=== PATIENT | female | born 1940 | race Caucasian/White ===

== ENCOUNTER 2018-01-05 08:27 | Day surgery (SDC) | payer OTHER ==
[2018-01-05] VITALS (11 sets, daily range): BP systolic 131–229; BP diastolic 66–101; PULSE 72–112; RESP 18–20; TEMP 98.2–99; O2SAT 93–96
[~2018-01-05] VITALS: Ht 167.6 cm; Wt 61.8 kg
[~2018-01-05 08:27] MED LIST: CLOP75 PO
[2018-01-05] MEDS ORDERED: IOHEXOL 350 MG/ML 50 ML BTL (for Cath Lab) OTHER ONE (08:28)
--- NOTE | 2018-01-05 09:23 | PD.VS.PN ---
Pre-operative Note Pre-operative diagnosis: PAD, L LE claudication Planned procedure: Aortogram w/ L LE angiogram Endovascular intervention Interval History: Pt has been feeling well ; no changes that would preclude OR. Labs: pending Blood: none needed Imaging: CTA reviewed Orders: NPO Post-operative destination: DOCU Operative site marked: Yes Consent: Informed consent has been obtained from Navdeep Sprague. I have explained the procedure in detail and discussed the risks, benefits, and potential complications. All questions have been answered. Monty Montero MD Jan 05, 2018 09:22
[2018-01-05] MEDS ORDERED: SODIUM BICARBONATE 100 MEQ in D5W 1000 ML IV SCH (09:30)
[2018-01-05] MEDS ORDERED: hydrALAZINE HCL 20 MG/ML VIAL IV ONE (10:00)
[2018-01-05] MEDS ORDERED: hydrALAZINE HCL 20 MG/ML VIAL IV PUSH ONE (10:45)
[2018-01-05] MEDS ORDERED: MIDAZOLAM HCL 2 MG/2 ML VIAL ONE (11:30)
[2018-01-05] MEDS ORDERED: NITROGLYCERIN INJ 5 ML ONE (11:30)
[2018-01-05] MEDS ORDERED: HEPARIN SODIUM - IV 10,000 UNITS/10 ML VIAL ONE (11:30)
[2018-01-05] MEDS ORDERED: LIDOCAINE HCL 1% PF 30 ML VIAL ONE (11:30)
[2018-01-05] MEDS ORDERED: HEPARIN-NS/PF FLUSH BAG 2,000 ML IV FLUSH ONE (11:30)
[2018-01-05] MEDS ORDERED: PLAV75TA29 PO (11:47)
--- NOTE | 2018-01-05 12:39 | CATHPROC ---
[facility] HIS Report Study Information Study Number Admission Scheduled Start Study Start [id number] Jan 05 2018 8:27AM 01/05/2018 Jan 05 2018 11:26AM [place] Service Cath Endovascular Study Admit Source Facility Department Other [facility] Physician and Clinical Staff Initial MD Montero, Monty Supervisor Instrument Mechanics Ritu Kendrick,RN Recorder Ovidio Knight,RT(R) Scrub Maximilian Miranda,RT(R) Procedures Performed Procedure Location (Site) Vessel Name Abdominal Angiogram Abd Aorta (A3) Aorta TELESCOPE REPAIRER Peroneal (left) Popliteal TELESCOPE REPAIRER SFA (left) Femoral Art Wire insertion Fem Art (right) Femoral Art Equipment Time Pulpwood Cutter Description Size Mfg Part Number Used/Scraped [id number] 11:32 ANGIO-DYNAMICS OMNI FLUSH 65CM CATHETER FR 4 Used *[id number] INTRODUCER SET, 11:31 [employer]OOK INC. FR 5 [id number] *[id number] Used MICROPUNCTURE STIFF BALLOON, ADVANCE 18 LP .018 4 [id number] 12:28 COOK/MANUEL 4X4 Used X4 *[id number] CXI-4.0-35-135- 11:51 COOK/MANUEL CATHETER, FR4 CXI SUPPORT FR 4 Used P-NS-0 *[id number] SHEATH, FR6 BLANCHE 1 FLEXOR [id number] 11:51 COOK/MANUEL FR 6 Used 55CM *[id number] WIRE, GUIDE APPROACH PULP MILL OPERATOR [id number] 11:58 COOK/MANUEL 300CM Used MICROWIRE *[id number] WIRE, STORQ STANDARD MOD J [id number] 11:53 CORDIS/ MANUEL 300CM Used 300CM *[id number] 12:33 DAIG/ST. MED MEDICAL ANGIOSEAL, FR6 VIP FR 6 Used *[id number] 12:27 DAIG/ST. MED MEDICAL ANGIOSEAL, FR6 VIP FR 6 Used *[id number] BALLOON, ADMIRAL IN.PACT 5 X [id number] 12:00 [email or web address] TECHNOLOGIES 130CM Used 80 130CM *[id number] 11:31 Loylap INDUSTRIES PACK, CCL CUSTOM * Used *[id number] 4739-33 11:51 MERIT MEDICAL WIRE, LIND 260CM .035 260CM Used *[id number] TUBING, PRESSURE INJECTION [id number] 11:31 NAMIC PACER 72" Used 72" *[id number] 11:31 NYCOMED OMNIPAQUE, 300 MG, 150ML 150ML [id number] Used 11:31 NYCOMED OMNIPAQUE, 300 MG, 50ML 50ML [id number] Used [id number] 11:31 PAEZ MEDICAL BLANKET,WARM AIR CCL * Used *[id number] 11:32 TERUMO MEDICAL SHEATH, FR4 TERUMO (10CM) FR 4 Used *[id number] 11:55 TERUMO MEDICAL SHEATH, FR6 TERUMO (10CM) FR 6 Used *[id number] CATHETER, FR4 GUIDE ANGLED 11:47 TERUMO MEDICAL/MANUEL FR 4 [id number] *[id number] Used 120CM WIRE, ANGLED GLIDE .035 [id number] 11:31 TERUMO MEDICAL/MANUEL 260CM Used 260CM *[id number] Equipment Model, Serial, Lot Number and Expiration Data Description Model Number Serial Number Lot Number Expiration Date ANGIOSEAL, FR6 VIP [id number] 07-14-2018 ANGIOSEAL, FR6 VIP [id number] 07-14-2018 BALLOON, ADMIRAL IN.PACT 5 X [id number] 08-20-2020 80 130CM CATHETER, FR4 CXI SUPPORT [id number] 12-04-2020 SHEATH, FR6 BLANCHE 1 FLEXOR [id number] 10-13-2020 55CM WIRE, GUIDE APPROACH PULP MILL OPERATOR [id number] 03-01-2022 MICROWIRE Medication Medication Total Dose (Bolus/Oral) Medication Total Dosage/Unit 1% XYLOCAINE 10 mL FENTANYL 100 mcg HEPARIN 5000 units VERSED 2 mg Medications (Bolus/Oral) Medication Time Given Dosage/Unit Administered By Reason VERSED 01/05/2018 11:40:29 AM 1 mg Ritu Kendrick 1 mg VERSED given in lab by Ritu Kendrick, RN via Peripheral IV. Ordered by Monty Montero. 1% XYLOCAINE 01/05/2018 11:41:12 AM 10 mL Monty Montero 10 mL 1% XYLOCAINE given in lab by Monty Mnotero in Right Groin via Subcutaneous. Ordered by Monty Montero. FENTANYL 01/05/2018 11:41:57 AM 50 mcg Ritu Kendrick 50 mcg FENTANYL given in lab by Ritu Kendrick, RN via Peripheral IV. Ordered by Monty Montero. HEPARIN 01/05/2018 11:51:04 AM 5000 units Ritu Kendrick 5000 units HEPARIN given in lab by Ritu Kendrick, RN via Peripheral IV. Ordered by Monty Montero. VERSED 01/05/2018 12:04:06 PM 1 mg Ritu Kendrick 1 mg VERSED given in lab by Ritu Kendrick, NYDIA via Peripheral IV. Ordered by Monty Montero. FENTANYL 01/05/2018 12:05:45 PM 50 mcg Ritu Kendrick 50 mcg FENTANYL given in lab by Ritu Kendrick, NYDIA via Peripheral IV. Ordered by Monty Montero. Medication (Drip) Medication Time Given Dosage/Unit Concentration/Unit Diluent (ml) Solution SODIUM BICARBONATE 01/05/2018 11:30:04 AM 15 mL/hr 150 1000 NaCl .9 DRIP Patient arrived on 15 mL/hr SODIUM BICARBONATE DRIP given by Monty Montero in Left Antecubital via P eripheral IV. Pump/Drip Flow = 100 ml/hr using NaCl .9 with a concentration of 150 in 1000 ml. Ordered by Monty Montero. Initial Case Assessment Cardiovascular HR Rhythm NIBP 88 sr 193/101 Edema Present Skin color Skin None Normal Warm Dry Circulatory - Right Pulses Femoral 3 Scale (0,1,2,3,4,d) Circulatory - Left Pulses Femoral 2 Scale (0,1,2,3,4,d) Neurological State Oriented to time-place- Alert Moves all extremities person Respiration - General Respiration Rate SpO2 (%) O2 (lpm) (B/min) 18 98 0 Final Case Assessment Cardiovascular HR Rhythm NIBP 89 sr 153/90 Edema Present Skin color Skin None Normal Warm Dry Circulatory - Right Pulses Femoral 3 Scale (0,1,2,3,4,d) Circulatory - Left Pulses Femoral 2 Scale (0,1,2,3,4,d) Neurological State Oriented to time-place- Alert Moves all extremities person Respiration - General Respiration Rate SpO2 (%) O2 (lpm) (B/min) 18 96 0 Chronological Log Time Study Chronological Log 11:23:08 Patient arrived via Bed. No labs drawn this visit per Dr. Montero 11:26:14 Patient Name, D.O.B, / Armband Verified By R.N. 11:26:16 Consent signed by the physician and the patient and verified by the [facility] staff. 11:26:16 Pre-op and post- op instructions given; patient acknowledges understanding of instructions. 11:26:43 MD arrived. Vitals capture started with the following parameters, Patient=Adult, Interval=5 min, Initial Pr gbembn=050 mmHg, 11:27:38 Deflation Rate=5 mmHg, Cuff placed on Right Ankle 11:28:54 HR=90 bpm, FAXX=684/101 mmhg, SpO2=97.0 %, Resp=21 B/min, Figueredo=2 11:29:32 Reference ECG taken 11:29:45 A # 20 IV was noted in the Antecubital (left). Grade = 0 Patient arrived on 15 mL/hr SODIUM BICARBONATE DRIP given by Monty Montero in Left Antecubital via Peripheral IV. 11:30:04 Pump/Drip Flow = 100 ml/hr using NaCl .9 with a concentration of 150 in 1000 ml. Ordered by Monty Legre. 11:30:29 History and physical on the chart or being dictated. Assessment: Initial Case, HR=88 BPM, Rhythm=sr, PWDJ=764/101 mmhg, Edema=None, Color=Normal, Sk in = Warm, Dry Right Pulses: Femoral=3 11:30:31 Left Pulses: Femoral=2 Neurological: State=Alert, Ox3, RAE Respiration: Resp=18 B/min, SpO2=98 %, O2=0 lpm 11:31:01 Bilateral groins prepped with 2% chlorhexidine, and draped after a 3 minute waiting time. 11:33:22 MM=292 bpm, XSGP=353/103 mmhg, SpO2=97.0 %, Resp=21 B/min, Figueredo=2 11:38:23 HR=89 bpm, WDWR=273/96 mmhg, SpO2=96.0 %, Resp=13 B/min, Figueredo=2 Time Out. Correct patient, correct procedure, correct physician, power injector loaded with con trast with surgical team 11:40:08 present. Time Out Concurred by MD and individual staff in procedure. Loaded by Kayleigh Kendrick Rn . verified by Maximilian Miranda. 11:40:29 1 mg VERSED given in lab by Ritu Kendrick, RN via Peripheral IV. Ordered by Luc Montero 11:41:00 Case Start 11:41:02 Verbal Stimulation=2 Physical Stimulation=2 Airway=2 Respiration=2 TOTAL=8. (0=absent, 1=li mited, 2=present) 11:41:12 10 mL 1% XYLOCAINE given in lab by Monty Montero in Right Groin via Subcutaneous. Ordered by Monty Montero. 11:41:57 50 mcg FENTANYL given in lab by Ritu Kendrick, RN via Peripheral IV. Ordered by Moi Montero. 11:42:11 Access site was Right Femoral Artery. 11:42:20 A SHEATH, FR4 TERUMO (10CM) FR 4 was advanced into the Fem Art (right) using the Percutaneo us technique. 11:43:22 HR=94 bpm, FCWH=188/98 mmhg, SpO2=94.0 %, Resp=17 B/min, Figueredo=2 A OMNI FLUSH 65CM CATHETER FR 4 was advanced over a wire. OMNIPAQUE, 300 MG, 150ML 150ML was us ed for 11:43:40 injections. 11:44:30 Through a OMNI FLUSH 65CM CATHETER FR 4, The Abdominal Aorta was injected with 10 cc's of c ontrast. 11:45:43 A WIRE, ANGLED GLIDE .035 260CM 260CM was inserted via Fem Art (right). After removing the current catheter a CATHETER, FR4 GUIDE ANGLED 120CM FR 4 was advanced over a WIRE, 11:47:27 ANGLED GLIDE .035 260CM 260CM. 11:48:23 HR=89 bpm, VTPD=136/85 mmhg, SpO2=95.0 %, Resp=17 B/min, Figueredo=2 11:49:40 Injections down left leg through 4fr angled catheter. 11:51:04 5000 units HEPARIN given in lab by Ritu Kendrick, RN via Peripheral IV. Ordered by Monty Montero. 11:51:17 A WIRE, LIND 260CM .035 260CM was inserted via Fem Art (right). 11:51:23 Catheter was removed 11:53:20 HR=94 bpm, JBIL=554/90 mmhg, SpO2=93.0 %, Resp=18 B/min, Figueredo=2 A SHEATH, FR6 TERUMO (10CM) FR 6 was exchanged in the Fem Art (right). This was necessary in or beltran to 11:55:19 accomodate a larger catheter. A SHEATH, FR6 BLANCHE 1 FLEXOR 55CM FR 6 was exchanged in the Fem Art (right). This was necessary in order to 11:55:27 accomodate a larger catheter. 11:58:21 HR=89 bpm, CKUD=445/87 mmhg, SpO2=95.0 %, Resp=20 B/min, Figueredo=2 A CATHETER, FR4 CXI SUPPORT FR 4 was advanced over a wire. OMNIPAQUE, 300 MG, 50ML 50ML was use d for 11:58:43 injections. 11:58:49 The previous wire was exchanged for a WIRE, GUIDE APPROACH PULP MILL OPERATOR MICROWIRE 300CM. 12:00:26 The previous wire was exchanged for a WIRE, STORQ STANDARD MOD J 300CM 300CM. 12:03:20 HR=93 bpm, ZDKT=535/98 mmhg, SpO2=94.0 %, Resp=20 B/min, Figueredo=2 A BALLOON, ADMIRAL IN.PACT 5 X 80 130CM 130CM was inserted over WIRE, STORQ STANDARD MOD J 300C M 12:03:20 300CM via the SFA (left). 12:03:37 In the SFA (left) a BALLOON, ADMIRAL IN.PACT 5 X 80 130CM 130CM was inflated to 8 atms for 180 seconds. 12:04:06 1 mg VERSED given in lab by Ritu Kendrick, NYDIA via Peripheral IV. Ordered by Luc Montero 12:05:45 50 mcg FENTANYL given in lab by Ritu Kendrick, NYDIA via Peripheral IV. Ordered by Moi Montero. 12:08:21 HR=84 bpm, EBPL=221/89 mmhg, SpO2=94.0 %, Resp=12 B/min, Figueredo=2 12:10:38 Balloon Removed. 12:13:24 HR=83 bpm, IQPC=127/76 mmhg, SpO2=94.0 %, Resp=17 B/min, Figureedo=2 12:13:44 The previous wire was exchanged for a WIRE, GUIDE APPROACH PULP MILL OPERATOR MICROWIRE 300CM. 12:18:23 HR=83 bpm, UHKE=549/71 mmhg, SpO2=94.0 %, Resp=15 B/min, Figueredo=2 12:19:16 Catheter was removed w/o difficulty A balloons was inserted over WIRE, GUIDE APPROACH PULP MILL OPERATOR MICROWIRE 300CM via the Peroneal (left). COOK 3mm * 12:19:18 4cm .018 Balloon. 12:20:11 In the Peroneal (left) a balloons was inflated to 12 atms for 120 seconds. 12:23:19 In the Peroneal (left) a balloons was inflated to 12 atms for 120 seconds. 12:23:20 HR=79 bpm, CUSM=869/81 mmhg, SpO2=92.0 %, Resp=17 B/min, Figueredo=2 12:26:26 Balloon Removed. A BALLOON, ADVANCE 18 LP .018 4 X 4 4 X 4 was inserted over WIRE, GUIDE APPROACH PULP MILL OPERATOR MICROWIRE 300CM via 12:27:03 the Peroneal (left). 12:27:49 In the Peroneal (left) a BALLOON, ADVANCE 18 LP .018 4 X 4 4 X 4 was inflated to 8 atms fo r 20 seconds. 12:29:00 HR=80 bpm, ZNWW=305/79 mmhg, SpO2=95.0 %, Resp=17 B/min, Figueredo=2 12:31:11 Balloon Removed. 12:32:21 The previous wire was exchanged for a WIRE, STORQ STANDARD MOD J 300CM 300CM. 12:33:23 HR=90 bpm, VKSR=344/90 mmhg, SpO2=95.0 %, Resp=23 B/min, Figueredo=2 12:34:10 ANGIOSEAL, FR6 VIP FR 6 placement in the Fem Art (right) Assessment: Final Case, HR=89 BPM, Rhythm=sr, VZGL=529/90 mmhg, Edema=None, Color=Normal, Skin = Warm, Dry Right Pulses: Femoral=3 12:35:01 Left Pulses: Femoral=2 Neurological: State=Alert, Ox3, RAE Respiration: Resp=18 B/min, SpO2=96 %, O2=0 lpm 12:35:34 Catheter(s) removed without difficulty 12:35:37 Case End 12:35:38 No case complications noted. 12:35:40 Cine recording checked. 12:37:01 Patient moved to stretcher 12:38:22 HR=85 bpm, SQCK=770/80 mmhg, SpO2=95.0 %, Resp=19 B/min, Figueredo=2 End Study - Contrast Media Used In Study Contrast Total Opened (mL) Total Used (mL) Total Wasted (mL) Omnipaque 45 45 0 End Study - Radiation Exposure Fluoro Time (minutes) 13.8 End Study - Patient Disposition Complications Transferred To No Telemetry Bed
[2018-01-05] MEDS ORDERED: BISACODYL 10 MG SUPP RECTAL PRN (12:45)
[2018-01-05] MEDS ORDERED: ENOXAPARIN SODIUM 40 MG/0.4 ML SYRINGE SQ SCH (12:45)
[2018-01-05] MEDS ORDERED: SENNOSIDES 8.6 MG TAB PO PRN (12:45)
[2018-01-05] MEDS ORDERED: HEPARIN-D5W 25,000 U/250 ML 250 ML IV PRN (12:45)
[2018-01-05] MEDS ORDERED: LACTULOSE SYRUP 20 GM/30 ML CUP PO PRN (12:45)
[2018-01-05] MEDS ORDERED: MAGNESIUM HYDROXIDE SUSP 30 ML CUP PO PRN (12:45)
--- NOTE | 2018-01-05 12:45 | HHI.PR ---
cc: Monty Montero MD Immediate Post Op Note Procedure Date: Jan 05, 2018 Pre Op Diagnosis: L LE claudication, PAD Post Op Diagnosis: Same Surgeon: Monty Montero Toxicology Teacher(s): none Procedure: 1. Aortogram w/ L LE angiogram 2. L SFA GUEST HOUSE MANAGER (5mm) with DCB 3. L peroneal GUEST HOUSE MANAGER (3mm) 4. R INTERIOR DESIGN ASSISTANT Angioseal Findings: SFA stent occlusion Additional Information: GUEST HOUSE MANAGER of stent with embolism to peroneal, then GUEST HOUSE MANAGER of peroneal Complications: embolism as above Specimen(s) removed: none Estimated blood loss: 10mL Anesthesia: MAC Drains: None Fluids: 500mL IVF Patient to: Other (DOCU) Patient Condition: Good Implant/Devices: SEE IMPLANT LOG (if applicable) Date/Time of Procedure: SEE SURGICAL CARE RECORD Monty Montero MD Jan 05, 2018 12:45
[2018-01-05 14:16] LABS: INTERNATIONAL NORMALIZED RATIO 1.1 RATIO; PROTHROMBIN TIME - PATIENT 10.7 SEC (9.8-11.6)
[2018-01-05] MEDS ORDERED: HEPARIN SODIUM - IV 10,000 UNITS/10 ML VIAL IV PUSH PRN (18:45)
[2018-01-05] MEDS ORDERED: HEPARIN - 10,000 UNITS/ML IV ADDITIVE IV PUSH PRN (18:45)
[2018-01-05] MEDS ORDERED: hydrALAZINE HCL 20 MG/ML VIAL IV PRN (20:30)
[2018-01-05] MEDS ORDERED: DOCUSATE SODIUM 50 MG/SENNA 8.6 MG TAB PO SCH (21:00)
[2018-01-05] MEDS ORDERED: FAMOTIDINE 20 MG TAB PO SCH (21:00)
[2018-01-05] MEDS ORDERED: ONDANSETRON HCL 4 MG/2 ML VIAL IV PUSH PRN (21:45)
[2018-01-06] VITALS (11 sets, daily range): BP systolic 154–182; BP diastolic 68–80; PULSE 76–109; RESP 16; TEMP 98.7; O2SAT 96
--- NOTE | 2018-01-06 09:01 | PD.VS.PN ---
Subjective POD #: 1 Procedure(s): Aortogram w/ L LE angiogram L SFA PATTERN CHAIN MAKER SUPERVISOR (5mm) with DCB L peroneal PATTERN CHAIN MAKER SUPERVISOR (3mm) R ENVIRONMENTAL STUDIES FACULTY MEMBER Angioseal Subjective/Hospital Course 77/F with a PMH of LEFT lower extremity claudication Pt S/P Left lower extremity revascularization Pt w/o complaints LE warm w/ motor intact Objective Vitals/I&O Date Time Temp Pulse Resp B/P (MAP) Pulse Ox O2 Delivery O2 Flow Rate FiO2 01/06/18 08:00 98.7 100 16 154/68 (96) 96 01/06/18 08:00 100 01/06/18 07:00 100 01/06/18 06:13 109 01/06/18 05:00 182/80 (114) 01/06/18 05:00 101 01/06/18 04:00 98 01/06/18 03:10 106 01/06/18 03:09 98.7 100 16 154/68 (96) 96 01/06/18 02:00 87 01/06/18 01:00 86 01/06/18 00:00 76 01/05/18 23:00 100 01/05/18 23:00 98.2 102 20 131/66 (87) 96 01/05/18 22:00 96 01/05/18 21:00 110 212/97 (135) 01/05/18 21:00 106 01/05/18 20:00 112 01/05/18 19:00 87 01/05/18 19:00 99.0 87 20 208/81 (123) 96 01/05/18 18:00 76 01/05/18 17:00 78 01/05/18 16:00 74 01/05/18 15:17 98.2 75 18 229/101 (143) 93 01/05/18 15:00 72 01/05/18 12:52 95 Room Air 01/05/18 09:00 98.5 75 18 229/101 (143) 93 01/06/18 01/06/18 01/06/18 07:00 15:00 23:00 Intake Total 380 ml Output Total 600 ml Balance -220 ml Exam: GENERAL: A&OX3,NAD,GCS15 SKIN: LE warm with motor intact MUSCULOSKELETAL: No cyanosis, or edema. Laboratory Laboratory Tests Test 01/05/18 13:40 01/05/18 20:56 01/06/18 05:27 Prothrombin Time 10.7 Prothromb Time International Ratio 1.1 Activated Partial Thromboplast Time 41.1 39.7 60.9 Assessment and Plan Assessment: (1) Claudication in peripheral vascular disease (2) PAD (peripheral artery disease) Plan 77/F s/p L LE revascularization Pt w/o complaints B LE warm w/ motor intact Plan Pt clear for D/C w/ continued anticoagulation therapy (Lovenox) Arranged out pt f/u in 1W with a surveillance NATE Olimpia Noriega NP [facility] [phone] Discharge Planning Today Olimpia Noriega [facility] Jan 06, 2018 09:01
[2018-01-06] MEDS ORDERED: ENOX60P SQ (09:10)
--- NOTE | 2018-01-06 09:22 | PD.VS.DC ---
Discharge Summary Admission Date: 01/05/18 Discharge Date: Jan 06, 2018 Admission Diagnosis: (1) PAD (peripheral artery disease) (2) Claudication in peripheral vascular disease Discharge Diagnosis: (1) Claudication in peripheral vascular disease ICD Codes: I73.9 - Peripheral vascular disease, unspecified (2) PAD (peripheral artery disease) ICD Codes: I73.9 - Peripheral vascular disease, unspecified Brief History from admission 77/F with a hx of L LE PAD with claudication Procedure(s): Aortogram w/ L LE angiogram L SFA PRINTED CIRCUIT BOARDS BEVELER (5mm) with DCB L peroneal PRINTED CIRCUIT BOARDS BEVELER (3mm) R POLYMER ENGINEER Angioseal Significant Findings GENERAL: A&OX3,NAD,GCS15 SKIN: LE warm with motor intact MUSCULOSKELETAL: No cyanosis, or edema. Laboratory Tests Test 01/05/18 13:40 01/05/18 20:56 01/06/18 05:27 Activated Partial Thromboplast Time 41.1 SEC (24.3-30.1) 39.7 SEC (24.3-30.1) 60.9 SEC (24.3-30.1) Hospital Course: 77/F with a hx of L LE PAD with claudication Pt s/p Aortogram w/ L LE angiogram/L SFA PRINTED CIRCUIT BOARDS BEVELER (5mm) with DCB/L peroneal PRINTED CIRCUIT BOARDS BEVELER (3mm) /R POLYMER ENGINEER Angioseal Post procedure pt c/o left leg feeling cold/pt was motor intact and was admitted for observation and anticoagulation therapy POD 1 Pt S/P Left lower extremity revascularization Pt w/o complaints LE warm w/ motor intact Pt clear for d/c with continued anticoagulation therapy (Lovenox) Arranged out pt f/u in 1W with a surveillance NATE Allergies Coded Allergies Type Severity Reaction Last Updated Verified No Known Allergies 06/14/12 Yes 01/04/18 01/04/18 01/05/18 01/05/18 01/06/18 01/06/18 06:00 18:00 06:00 18:00 06:00 18:00 Intake Total 425 ml 380 ml Output Total 400 ml 600 ml Balance 25 ml -220 ml Intake Oral 425 ml 240 ml IV Total 140 ml Output Urine Total 400 ml 600 ml # Bowel Movements 0 Laboratory Tests Test 01/05/18 13:40 01/05/18 20:56 01/06/18 05:27 Prothrombin Time 10.7 SEC Prothromb Time International Ratio 1.1 RATIO Activated Partial Thromboplast Time 41.1 SEC 39.7 SEC 60.9 SEC Orders Procedure Category Date Status Time Sodium Bicarbonate MED 01/05/18 In Process 8.4% Inj (Sodium Bica 09:30 Hydralazine Inj MED 01/05/18 Complete (Apresoline Inj) 10:00 Endovascular Cath CATH 01/05/18 Logged Heparin-Ns/Pf Flush MED 01/05/18 Complete Bag (Heparin-Ns/Pf F 11:30 Midazolam Inj (Versed MED 01/05/18 Complete Inj) 11:30 Fentanyl Inj MED 01/05/18 Complete (Fentanyl Inj) 11:30 Lidocaine Pf 1% Inj MED 01/05/18 Complete (Xylocaine-Mpf 1% In 11:30 Heparin Inj (Heparin MED 01/05/18 Complete Inj) 11:30 Nitroglycerin Inj MED 01/05/18 Complete (Nitroglycerin Inj) 11:30 Place In Observation ADMITTING 01/05/18 Transmitted Code Status CODE 01/05/18 Transmitted 12:45 Vital Signs (Adult) MARIAN 01/05/18 Complete 12:45 Operator Assistant I Cementing / MARIAN 01/05/18 In Process Telemetry 12:45 Activity Oob Ad Kinza MARIAN 01/05/18 In Process 18:00 Activity Bed Rest MARIAN 01/05/18 In Process 12:45 Precautions MARIAN 01/05/18 In Process 12:45 Diet Heart Healthy DIET 01/05/18 Transmitted Lunch Clopidogrel (Plavix) MED 01/07/18 In Process 09:00 Famotidine (Pepcid) MED 01/05/18 In Process 21:00 Docusate Sodium-Senna MED 01/05/18 In Process (Montse-Colace) 21:00 Magnesium Hydroxide MED 01/05/18 In Process Liq (Milk Of Magnesi 12:45 Sennosides (Senokot) MED 01/05/18 In Process 12:45 Bisacodyl Supp MED 01/05/18 In Process (Dulcolax Supp) 12:45 Lactulose Liq MED 01/05/18 In Process (Lactulose Liq) 12:45 Heparin Inj (Heparin MED 01/05/18 In Process Inj) 18:45 Heparin Inj (Heparin MED 01/05/18 In Process Inj) 18:45 Heparin-D5w 25,000 MED 01/05/18 In Process U/250 Ml (Heparin-D5w 12:45 Act Partial Throm LAB 01/05/18 Complete Time (Ptt) 12:45 Prothrombin Time / LAB 01/05/18 Complete Inr (Pt) 12:45 Cbc No Diff, Includes LAB 01/08/18 Verified Plts 06:00 Act Partial Throm LAB 01/05/18 Complete Time (Ptt) 19:45 Occult Blood ROSAURA 01/05/18 In Process (Hemoccult) Stool 12:45 ^ Other Nursing Orders MARIAN 01/05/18 In Process 13:26 Iohexol 350 Inj (Cath MED 01/05/18 Complete Lab) (Omnipaque 35 08:28 Hydralazine Inj MED 01/05/18 In Process (Apresoline Inj) 20:30 Ondansetron Inj MED 01/05/18 In Process (Zofran Inj) 21:45 Act Partial Throm LAB 01/06/18 Complete Time (Ptt) 05:30 Act Partial Throm LAB 01/06/18 In Process Time (Ptt) 12:00 Attending Discharge DISCHARGE 01/06/18 Transmitted Order Vital Signs Date Time Temp Pulse Resp B/P (MAP) Pulse Ox O2 Delivery O2 Flow Rate FiO2 01/06/18 08:00 98.7 100 16 154/68 (96) 96 01/06/18 08:00 100 01/06/18 07:00 100 01/06/18 06:13 109 01/06/18 05:00 182/80 (114) 01/06/18 05:00 101 01/06/18 04:00 98 01/06/18 03:10 106 01/06/18 03:09 98.7 100 16 154/68 (96) 96 01/06/18 02:00 87 01/06/18 01:00 86 01/06/18 00:00 76 01/05/18 23:00 100 01/05/18 23:00 98.2 102 20 131/66 (87) 96 01/05/18 22:00 96 01/05/18 21:00 110 212/97 (135) 4/24/18 21:00 106 01/05/18 20:00 112 01/05/18 19:00 87 01/05/18 19:00 99.0 87 20 208/81 (123) 96 01/05/18 18:00 76 01/05/18 17:00 78 01/05/18 16:00 74 01/05/18 15:17 98.2 75 18 229/101 (143) 93 01/05/18 15:00 72 01/05/18 12:52 95 Room Air 01/05/18 09:00 98.5 75 18 229/101 (143) 93 Discharge Condition: Good Discharge Disposition: Discharge Home Discharge Instructions: DIET You may resume your regular diet ACTIVITY Activity as tolerated You may shower NO tub baths for 5 days No swimming for 5 days MEDICATION You may resume your home medication You were prescribed an additional medication for anticoagulation therapy This medication is given as an injection in the subcutaneous tissue (twice daily for 2W) It is recommended to rotate injection sites PLEASE call the office with any questions or concerns Any questions or concerns: Call [facility] V[facility] Surgery at [facility] [phone] Olimpia Noriega Jan 06, 2018 09:22
--- NOTE | 2018-01-06 11:31 | MP ---
cc: Monty Montero MD DATE OF OPERATION: 01/05/2018 PREOPERATIVE DIAGNOSIS: Left lower extremity claudication, peripheral vascular disease. POSTOPERATIVE DIAGNOSIS: Left lower extremity claudication, peripheral vascular disease. PROCEDURE PERFORMED: 1. Aortogram with left lower extremity angiogram. 2. Left SFA angioplasty. 3. Left peroneal angioplasty. 4. Right common femoral artery Angio-Seal. ATTENDING SURGEON: Monty Montero MD. ANESTHESIA: Local with sedation. INDICATIONS FOR PROCEDURE: Ms. Sprague is a 77-year-old lady with left lower extremity claudication that is lifestyle limiting. She had previous endovascular therapies and the stents were noted to be occluded. She is taken to the operating room for angiographic evaluation and treatment. There is no prior catheterization based imaging available for my review. DESCRIPTION OF PROCEDURE: Informed consent was obtained from the patient. She was taken to the operating room and placed supine on the operating table and an appropriate time-out was taken to ensure the patient's identity, operative site and planned procedure. The administration of antibiotics was not necessary as this is a clean procedure without planned implantation of any foreign object. Everyone in the room agreed with the time-out and we proceeded. Her bilateral groins were prepped and draped and the right groin was anesthetized with 1% lidocaine. A 21-gauge micropuncture needle was used to access the right limb of her aortobifemoral. This was exchanged using Seldinger technique for the micropuncture sheath, through which a 0.035 Glidewire was introduced. The micropuncture sheath was exchanged for a 4-Monegasque sheath and a VCF catheter was placed over the wire and through the sheath. An aortogram and pelvic arteriogram was obtained. The Glidewire was reintroduced and navigated down to the left common femoral artery and the VCF catheter exchanged for a Kumpe catheter and this was advanced down the left common femoral artery, and a left lower extremity angiogram was obtained. The patient was systemically heparinized with 5000 units of IV heparin. A 0.035 STORQ wire was advanced down the mid SFA. The Kumpe catheter and 4-Monegasque sheath removed and a 6-Monegasque 55 cm ____ was introduced. A CXI catheter was placed over the STORQ and the STORQ exchanged for a REHABILITATION SERVICES COUNSELOR and the REHABILITATION SERVICES COUNSELOR was used to navigate through the occluded stent. The REHABILITATION SERVICES COUNSELOR and CXI wire and catheter respectively were navigated through the occluded stent and the stent was angioplastied with a 5 mm drug-coated balloon for 3 minutes. Completion angiogram showed a persistent eccentric mass at the stent suggestive of thrombus and the distal angiogram showed the patient had a peroneal artery thrombus. The REHABILITATION SERVICES COUNSELOR wire and CXI catheter was then advanced down to the peroneal artery and an angioplasty of the peroneal artery was performed with a 3 and 4 mm balloon and the completion angiogram showed significant improvement in the embolic complication with runoff down to the distal peroneal artery. The wire, catheter and sheath were removed. The Mcleod was reintroduced through the sheath and the sheath was then removed with a Mcleod and the groin was closed with an Angio-Seal. At the conclusion of the case, the patient had a warm foot with a nice Doppler signal in the foot and with motor intact. She will be admitted postoperatively for a heparin drip. She had no other complications. INTERPRETATION OF IMAGES: The patient's aortobifemoral is end-to-side proximally with a patent [place] right common iliac artery and an in-limb stent on the left. The common femoral artery and superficial femoral artery are patent. The profunda is patent. There are 2 SFA stents on the right. The second one is occluded and there was peroneal artery runoff to the foot. After angioplasty of the distal SFA stent, there is a residual eccentric mass and there is a filling defect in the peroneal artery that was treated with an angioplasty. MD MAREK Sotelo/JADE/ , 12:52 PM , 01:23 PM
[2018-01-07] MEDS ORDERED: CLOPIDOGREL 75 MG TAB PO SCH (09:00)
== END 2018-01-06 10:25 | disposition home or self-care (01) ==
LOC: HDIC 08:27 → HDOC 08:27 → HCPC 14:50 → HDOC 01-06 10:25
PROVIDERS: ATTEND Surgery
DX: I70.212 Atherosclerosis of native arteries of extremities with intermittent claudication, left leg (principal); I10 Essential (primary) hypertension; Z79.01 Long term (current) use of anticoagulants
CPT/HCPCS: 37224; 37228; 75625; 75710; 85610; 85730; 99152; 99153; C1725; C1751; C1760; C1769; C1887; C1893; C2623; G0269; J0360; J1644; J2250; J3010; J7070; Q9967

== ENCOUNTER → 2018-01-21 | Outpatient (CLI) | payer OTHER ==
[~2018-01-21] MED LIST changes: +ASPI81 PO; -CLOP75 PO; +COMMODE 3-IN-11 MIS; +DIPH1TAB PO; +ENOX60P SQ; +GABA100C4 PO; +GETGO ROLLING W1 MI1; +OXYC1CAP PO; +PLAV75TA29 PO
[2018-01-21 12:02] LABS: BASOPHIL # 0.1 TH/MM3 (0-0.2); BASOPHIL % 1.1 % (0.0-2.0); EOSINOPHIL # 0.1 TH/MM3 (0-0.4); EOSINOPHIL % 2.3 % (0.0-4.0); HEMATOCRIT 42.3 % (35.0-46.0); HEMOGLOBIN 14.3 GM/DL (11.6-15.3); LYMPH % 24.4 % (9.0-44.0); LYMPHOCYTE # 1.4 TH/MM3 (1.0-4.8); MEAN CELL VOLUME 91.3 FL (80.0-100.0); MEAN CORPUSCULAR HEMOGLOBIN 30.9 PG (27.0-34.0); MEAN CORPUSCULAR HGB CONC 33.9 % (32.0-36.0); MEAN PLATELET VOLUME 7.7 FL (7.0-11.0); MONO % 4.6 % (0.0-8.0); MONOCYTE # 0.3 TH/MM3 (0-0.9); NEUT % 67.6 % (16.0-70.0); PLATELET COUNT 211 TH/MM3 (150-450); RED BLOOD COUNT 4.63 MIL/MM3 (4.00-5.30); RED CELL DISTRIBUTION WIDTH 14.2 % (11.6-17.2); WHITE BLOOD COUNT 5.9 TH/MM3 (4.0-11.0)
[2018-01-21 12:10] LABS: PROTHROMBIN TIME - PATIENT 10.1 SEC (9.8-11.6)
--- NOTE | 2018-01-21 12:49 | RADRPT ---
EXAM DATE/TIME: 01/21/2018 12:05 [facility] COMPARISON: No previous studies available for comparison. INDICATIONS : Evaluate for pneumothorax, pneumonia or communicable disease. Preop chest for lower extremity vascula r surgery on 01/25/18, no chest complaints at this time MEDICAL HISTORY : None. SURGICAL HISTORY : None. ENCOUNTER: Initial ACUITY: 1 day PAIN SCORE: 0/10 LOCATION: Bilateral chest FINDINGS: PA and lateral views of the chest demonstrate the lungs to be symmetrically aerated without evidence of mass, infiltrate or effusion. The cardiomediastinal contours are unremarkable. Osseous structure s are intact. Clips are seen in the right upper quadrant of the abdomen. CONCLUSION: No acute disease. Juve Alcazar MD on January 21, 2018 at 12:47 Board Certified Radiologist. This report was verified electronically.
[2018-01-21 13:05] LABS: CREATININE 0.86 MG/DL (0.50-1.00)
[2018-01-21 13:06] LABS: BICARBONATE 29.3 MEQ/L (21.0-32.0); CALCIUM 8.7 MG/DL (8.5-10.1)
--- NOTE | 2018-01-21 20:27 | EKG ---
Date Performed: 01/21/2018 Time Performed: 11:28:24 PTAGE: 77 years EKG: Sinus rhythm Since previous tracing, no significant change noted NORMAL ECG PREVIOUS TRACING : 10/20/2013 08.18.34 DOCTOR: Guero Parrish Interpretating Date/Time 01/21/2018 20:26:26
== END ==
LOC: CPRE 11:03
PROVIDERS: ATTEND Surgery
DX: Z01.810 Encounter for preprocedural cardiovascular examination (principal); Z01.812 Encounter for preprocedural laboratory examination; Z01.818 Encounter for other preprocedural examination; I73.9 Peripheral vascular disease, unspecified; Z79.01 Long term (current) use of anticoagulants
CPT/HCPCS: 36415; 71046; 80048; 85025; 85610; 85730; 93005

== ENCOUNTER 2018-01-25 08:20 | Inpatient (IN) | payer OTHER, MEDICARE ==
[~2018-01-25] VITALS: Ht 167.6 cm; Wt 63.5 kg
[~2018-01-25 08:20] MED LIST changes: -ASPI81 PO; -COMMODE 3-IN-11 MIS; -ENOX60P SQ; -GETGO ROLLING W1 MI1; -OXYC1CAP PO
--- NOTE | 2018-01-25 08:59 | HHI.HP ---
History of Present Illness Chief Complaint: L LE rest pain History of Present Illness 77 yo female with PAD and L LE rest pain, ABIs 0.4. No tissue loss and no motor dysfunction. Past/Family/Social History Past Medical History PAD HTN CAD DM GERD Past Surgical History ABF R LE bypass Multiple L LE interventions (endo) Social History former smoker Family History NC Home Medications Reported Medications Diphenhydramine-Acetaminophen (Acetaminophen-Diphenhydramine) 500 Mg-25 Mg Tab, 2 TAB PO HS 01/21/18 Gabapentin (Gabapentin) 100 Mg Cap, 200 MG PO HS, #30 CAP 0 Refills 01/21/18 Clopidogrel (Plavix) 75 Mg Tab, 75 MG PO DAILY for Blood Clot Prevention, #30 TAB 0 Refills 01/05/18 Discontinued Scripts Enoxaparin Inj (Lovenox Inj) 60 Mg/0.6 Ml Syr, 60 MG SQ BID for PAD for 14 Days , #28 SYRINGE 0 Refills Prov:HariOlimpia F [employer] 01/06/18 Coded Allergies: ARMIDA Inhibitors (Verified Adverse Reaction, Severe, Cough, 01/21/18) Review of Systems Constitutional: DENIES: Diaphoretic episodes, Fatigue, Fever, Weight gain, Weight loss, Chills, Dizziness, Change in appetite, Night Sweats Cardiovascular: DENIES: Chest pain, Palpitations, Syncope, Dyspnea on Exertion , PND, Lower Extremity Edema, Orthopnea, Claudication Physical Exam Neuro: alert, oriented, no distress HEENT: NC/AT Neck: no JVD Heart: reg rate, no M Lungs: clear bilaterally Abdomen: soft, NT Vascular: palpable L femoral pulse, normal no popliteal or pedal pulses Extremities: no wounds L groin incision healed pending will do angiogram in OR as part of distal bypass Caprini VTE Risk Assessment Caprini VTE Risk Assessment: No/Low Risk (score <= 1) Caprini Risk Assessment Model Point Value = 1 Point Value = 2 Point Value = 3 Point Value = 5 Age 41-60 Minor surgery BMI > 25 kg/m2 Swollen legs Varicose veins or History of unexplained or recurrent spontaneous Oral contraceptives or hormone replacement Sepsis (< 1 month) Serious lung disease, including pneumonia (< 1 month) Abnormal pulmonary function Acute myocardial infarction Congestive heart failure (< 1 month) History of inflammatory bowel disease Medical patient at bed rest Age 61-74 Arthroscopic surgery Major open surgery (> 45 min) Laparoscopic surgery (> 45 min) Malignancy Confined to bed (> 72 hours) Immobilizing plaster cast Central venous access Age >= 75 History of VTE Family history of VTE Factor V Leiden Prothrombin [id number] Lupus anticoagulant Anticardiolipin antibodies Elevated serum homocysteine Heparin-induced thrombocytopenia Other congenital or acquired thrombophilia Stroke (< 1 month) Elective arthroplasty Hip, pelvis, or leg fracture Acute spinal cord injury (< 1 month) Prophylaxis Regimen Total Risk Factor Score Risk Level Prophylaxis Regimen 0-1 Low Early ambulation 2 Moderate Order ONE of the following: *Sequential Compression Device (SCD) *Heparin 5000 units SQ BID 3-4 Higher Order ONE of the following medications: *Heparin 5000 units SQ TID *Enoxaparin/Lovenox 40 mg SQ daily (WT < 150 kg, CrCl > 30 mL/min) *Enoxaparin/Lovenox 30 mg SQ daily (WT < 150 kg, CrCl > 10-29 mL/min) *Enoxaparin/Lovenox 30 mg SQ BID (WT < 150 kg, CrCl > 30 mL/min) AND/OR *Sequential Compression Device (SCD) 5 or more Highest Order ONE of the following medications: *Heparin 5000 units SQ TID (Preferred with Epidurals) *Enoxaparin/Lovenox 40 mg SQ daily (WT < 150 kg, CrCl > 30 mL/min) *Enoxaparin/Lovenox 30 mg SQ daily (WT < 150 kg, CrCl > 10-29 mL/min) *Enoxaparin/Lovenox 30 mg SQ BID (WT < 150 kg, CrCl > 30 mL/min) AND *Sequential Compression Device (SCD) Assessment and Plan Plan L LE revascularization today post-op admit Discharge Planning likely 3-4 days Monty Montero MD January 25, 2018 08:58
[2018-01-25] MEDS ORDERED: CHLORHEXIDINE GLUCONATE 2 % 1 PACK (2 CLOTHS) TOPICAL PRN (09:00)
[2018-01-25] MEDS ORDERED: LACTATED RINGER'S 1000 ML IV PRN (09:00)
[2018-01-25] MEDS ORDERED: SODIUM CHLORID 0.9% 500 ML IV PRN (09:00)
[2018-01-25] MEDS ORDERED: METOPROLOL TARTRATE 25 MG TAB PO PRN (09:00)
[2018-01-25] MEDS ORDERED: POVIDONE IODINE 5% (ANTISEPSIS KIT) 4 APPLICATIONS EACH NARE PRN (09:00)
[2018-01-25] MEDS ORDERED: IOHEXOL 300 INJ 50 ML IV ONE (10:45)
[2018-01-25] MEDS ORDERED: ACETAMINOPHEN 1000 MG/100 ML 100 ML IV ONE (11:28)
[2018-01-25] MEDS ORDERED: FAMOTIDINE 20 MG/2 ML VIAL ONE (11:30)
[2018-01-25] MEDS ORDERED: NITROGLYCERIN INJ 5 ML ONE (11:30)
[2018-01-25] MEDS ORDERED: HEPARIN SODIUM - IV 10,000 UNITS/10 ML VIAL ONE (11:33)
[2018-01-25] MEDS ORDERED: THROMBIN (TOPICAL) 20,000 UNIT SPRAY KIT ONE (11:33)
[2018-01-25] MEDS ORDERED: BUPIVACAINE HCL PF 0.5% 10 ML VIAL ONE ×2 (11:33→14:02)
[2018-01-25] MEDS ORDERED: PROTAMINE SULFATE 50 MG/5 ML VIAL ONE (11:33)
[2018-01-25] MEDS ORDERED: HEPARIN-NS/PF INJ 500 ML ONE (11:33)
[2018-01-25] MEDS ORDERED: ceFAZolin 2 GM PREMIX 50 ML ONE (11:33)
[2018-01-25] MEDS ORDERED: METOPROLOL TARTRATE 5 MG/5 ML VIAL IV ONE (12:00)
[2018-01-25] MEDS ORDERED: ESMOLOL HCL 100 MG/10 ML VIAL IV ONE (12:00)
[2018-01-25] MEDS ORDERED: SODIUM CHLORID 0.9% 500 ML INJ 500 ML IV ONE (12:00)
[2018-01-25] MEDS ORDERED: ONDANSETRON HCL 4 MG/2 ML VIAL IV ONE (12:00)
[2018-01-25] MEDS ORDERED: ePHEDrine/NS 25 MG/5 ML SYRINGE IV ONE (12:00)
[2018-01-25] MEDS ORDERED: hydrALAZINE HCL 20 MG/ML VIAL IV ONE (12:00)
[2018-01-25] MEDS ORDERED: ROCURONIUM INJ 50 MG/5 ML SYRINGE IV PUSH ONE (12:00)
[2018-01-25] MEDS ORDERED: PROPOFOL 200 MG/20 ML AMP IV ONE (12:00)
[2018-01-25] MEDS ORDERED: DEXAMETHASONE SOD PHOS 4 MG/ML VIAL IV ONE (12:00)
[2018-01-25] MEDS ORDERED: LIDOCAINE HCL 1% PF 5 ML SYRINGE OTHER ONE (12:00)
[2018-01-25] MEDS ORDERED: NORMOSOL R INJ 2,000 ML IV ONE (12:00)
--- NOTE | 2018-01-25 15:23 | HHI.PR ---
cc: Monty Montero MD Immediate Post Op Note Procedure Date: January 25, 2018 Pre Op Diagnosis: PAD, failed endovascular interventions Post Op Diagnosis: PAD, failed endovascular interventions Surgeon: Monty Montero Spray Dry Operator(s): Monty Olivia Procedure: L PFA patch endarterectomy L fem-PT with cryo L LE angiogram Findings: very small tibial arteries proximal profunda stenosis Additional Information: pt thanh well - strong PT at end of case Complications: none Specimen(s) removed: none for pathology Estimated blood loss: 200mL Anesthesia: General Drains: None Fluids: 1800mL IVF Urinary Output (mLs): 700 Patient to: PACU Patient Condition: Good Implant/Devices: SEE IMPLANT LOG (if applicable) Date/Time of Procedure: SEE SURGICAL CARE RECORD Monty Montero MD January 25, 2018 15:23
[2018-01-25] MEDS ORDERED: MAGNESIUM HYDROXIDE SUSP 30 ML CUP PO PRN (15:30)
[2018-01-25] MEDS ORDERED: SENNOSIDES 8.6 MG TAB PO PRN (15:30)
[2018-01-25] MEDS ORDERED: LACTULOSE SYRUP 20 GM/30 ML CUP PO PRN (15:30)
[2018-01-25] MEDS ORDERED: HEPARIN-D5W 25,000 U/250 ML 250 ML IV PRN (15:30)
[2018-01-25] MEDS ORDERED: HYDROmorphone HCL 2 MG TAB PO PRN (15:30)
[2018-01-25] MEDS ORDERED: MORPHINE SULFATE 4 MG/ML INJ IV PUSH PRN (15:30)
[2018-01-25] MEDS ORDERED: BISACODYL 10 MG SUPP RECTAL PRN (15:30)
[2018-01-25] MEDS ORDERED: DO NOT ADM ANY ANTICOAGULANT DRUGS PRN (15:45)
[2018-01-25] MEDS ORDERED: MIDAZOLAM HCL 2 MG/2 ML VIAL ONE (15:51)
--- NOTE | 2018-01-25 16:11 | MP ---
cc: Monty Montero MD DATE OF OPERATION: 01/25/2018 PREOPERATIVE DIAGNOSIS: Left lower extremity rest pain. Failed endovascular intervention. POSTOPERATIVE DIAGNOSIS: Left lower extremity rest pain, failed endovascular intervention. PROCEDURE PERFORMED: 1. Left lower extremity angiogram. 2. Left profunda endarterectomy and patch angioplasty. 3. Left femoral to posterior tibial artery bypass with cryopreserved vein. OPERATING SURGEON: Monty Montero MD ANESTHESIA: General. INDICATIONS FOR PROCEDURE: Ms. Sprague is a 77-year-old lady who has a history of peripheral arterial occlusive disease and a right lower extremity bypass as well as an aortobifemoral bypass. She has had multiple left lower extremity interventions and these have failed. Now, she has rest pain. There is no prior catheter-based imaging available for my review since the worsening of her rest pain. She was taken to the operating room for angiogram and a distal bypass revascularization. DESCRIPTION OF PROCEDURE: Informed consent was obtained from the patient. She was taken to the operating room and placed supine on the operating table. An appropriate timeout was taken to ensure the patient's identity, the operative site and planned procedure. The administration of 2 grams of Ancef was initiated prior to skin incision and will be discontinued after a single preoperative dose. Everyone in the room agreed with the timeout and we proceeded. She was prepped from her nipples to his toes, a vertical incision made in the patient's left groin and carried down through the subcutaneous tissue with electrocautery. The ABF limb was identified and encircled and dissected free. The profunda and superficial femoral artery were similarly dissected free. The profunda was noted to have a high grade calcific stenosis proximally. A 21-gauge micropuncture needle was used to access the graft. This was exchanged using Seldinger's technique for a micropuncture sheath through which a left lower extremity angiogram was obtained. The angiogram showed the patient had profunda-based collaterals which reconstituted the posterior tibial and the peroneal. The posterior tibia was in continuity with the foot. This was then selected as the bypass target. The microcatheter was removed and the graftotomy was closed with 5-0 Prolene suture. A separate incision was made on the medial aspect of the calf, carried down through subcutaneous tissue with electrocautery. The posterior tibial artery was dissected free for several centimeters. A tunnel was then created between these two. The patient was systemically heparinized and throughout the remainder of the case the ACT was kept greater than 250. Proximal control of the ABF limb and distal control of the profunda were obtained with profunda clamps and a longitudinal arteriotomy was made with an 11 blade, extended with Aba scissors. The artery was endarterectomized and patch was applied and sewn on using running 5-0 Prolene suture. At the completion it was flushed and noted hemostatic. A longitudinal patchotomy was made with an 11 blade, extended with Aba scissors. The cryopreserved vein was brought up onto the field; it had been prepared in the standard fashion and it was flushed. It was sewn in a reversed fashion. It was cut and bevelled and sewn end-to-side to the patch with running 5-0 Prolene suture. The clamps were then released; the vein was distended, marked for orientation and passed through the tunnel, taking caution not to twist it. Proximal and distal control of the posterior tibial artery was obtained with profunda clamps and a longitudinal arteriotomy was made with 11 blade, extended with Aba scissors. A generous patch was then made for a distal anastomosis with a running 6-0 Prolene suture. At the completion, it was flushed and noted to be hemostatic. The clamps were released. There was a nice Doppler signal in the foot. The heparin was reversed. The wounds were irrigated and made hemostatic, and closed with 2-0 Polysorb, 3-0 Polysorb and 4-0 Monocryl. The sponge and needle counts were correct at the end of the case. I was present, scrubbed, and performed the entire procedure. MD MAREK Sotelo/DHRUV , 03:40 PM , 04:09 PM
[2018-01-25 16:28] LABS: HEMATOCRIT 36.7 % (35.0-46.0); HEMOGLOBIN 12.6 GM/DL (11.6-15.3); MEAN CELL VOLUME 91.4 FL (80.0-100.0); MEAN CORPUSCULAR HEMOGLOBIN 31.3 PG (27.0-34.0); MEAN CORPUSCULAR HGB CONC 34.3 % (32.0-36.0); MEAN PLATELET VOLUME 7.4 FL (7.0-11.0); PLATELET COUNT 179 TH/MM3 (150-450); RED BLOOD COUNT 4.01 MIL/MM3 (4.00-5.30); WHITE BLOOD COUNT 8.1 TH/MM3 (4.0-11.0)
[2018-01-25 16:37] LABS: INTERNATIONAL NORMALIZED RATIO 1.1 RATIO; PROTHROMBIN TIME - PATIENT 10.7 SEC (9.8-11.6)
[2018-01-25] MEDS ORDERED: *morphine SULFATE 4 MG/ML PERIprocedure ONLY ONE ×2 (17:07→18:06)
[2018-01-25] MEDS: ATORVASTATIN 40 MG TAB PO SCH (22:31)
[2018-01-25] MEDS: FAMOTIDINE 20 MG TAB PO SCH (22:32)
[2018-01-25] MEDS: GABAPENTIN 100 MG CAP PO SCH (22:32)
[2018-01-25] MEDS: DOCUSATE SODIUM 50 MG/SENNA 8.6 MG TAB PO SCH (22:32)
[2018-01-26] VITALS (11 sets, daily range): BP systolic 143–167; BP diastolic 56–78; PULSE 80–104; RESP 18–19; TEMP 98.6–98.8; O2SAT 92–98
[2018-01-26 06:32] LABS: CALCIUM 8.3 MG/DL (8.5-10.1); CREATININE 0.72 MG/DL (0.50-1.00)
[2018-01-26 06:33] LABS: BICARBONATE 28.8 MEQ/L (21.0-32.0)
[2018-01-26] MEDS: DOCUSATE SODIUM 50 MG/SENNA 8.6 MG TAB PO SCH ×2 (08:31→21:51)
[2018-01-26] MEDS: FAMOTIDINE 20 MG TAB PO SCH ×2 (08:31→21:51)
[2018-01-26] MEDS: CLOPIDOGREL 75 MG TAB PO SCH (08:34)
[2018-01-26] MEDS: ASPIRIN 81 MG CHEW TAB PO SCH (08:34)
[2018-01-26] MEDS: hydrALAZINE HCL 20 MG/ML VIAL IV PUSH PRN (10:47)
--- NOTE | 2018-01-26 11:38 | PD.VS.PN ---
Subjective POD #: 1 Procedure(s): L PFA patch endarterectomy L fem-PT with cryo L LE angiogram Subjective/Hospital Course Pt alert this am w/o complaints Pain controlled Pt reported improved L LE pain since surgical intervention LE warm w/ motor intact Pt with Palpable L LE distal pulses Mild sanguinous drainage noted at the distal end of incision line L LE (no S/R ) (Olimpia Noriega) Objective Vitals/I&O Date Time Temp Pulse Resp B/P (MAP) Pulse Ox O2 Delivery O2 Flow Rate FiO2 01/26/18 08:00 98.6 80 18 152/64 (93) 98 167/67 (100) 01/26/18 08:00 96 Nasal Cannula 2.00 01/26/18 06:00 78 16 154/72 (99) 97 Nasal Cannula 2 154/58 (90) 01/26/18 05:00 76 17 146/66 (92) 97 Nasal Cannula 2 136/57 (83) 01/26/18 04:00 98.5 100 15 141/65 (90) 97 Nasal Cannula 2 125/53 (77) 01/26/18 03:00 82 15 130/60 (83) 96 Nasal Cannula 2 120/56 (77) 01/26/18 02:00 83 14 141/65 (90) 96 Nasal Cannula 2 131/56 (81) 01/26/18 01:00 83 14 127/60 (82) 96 Nasal Cannula 2 114/54 (74) 01/26/18 00:00 98.3 97 15 137/64 (88) 96 Nasal Cannula 2 140/61 (87) 01/25/18 23:00 91 13 140/64 (89) 97 Nasal Cannula 2 137/60 (85) 01/25/18 22:00 98.5 90 12 149/67 (94) 96 Nasal Cannula 2 135/66 (89) 01/25/18 21:00 90 12 153/71 (98) 97 Nasal Cannula 2 137/57 (83) 01/25/18 20:00 86 12 142/67 (92) 98 Nasal Cannula 2 140/60 (86) 01/25/18 19:11 87 17 144/65 (91) 98 Room Air 01/25/18 18:15 82 17 163/72 (102) 98 Room Air 01/25/18 17:45 86 17 153/68 (96) 98 Nasal Cannula 2 01/25/18 17:30 83 17 160/69 (99) 98 Nasal Cannula 3 01/25/18 17:15 90 17 171/67 (101) 99 Nasal Cannula 3 01/25/18 17:00 90 17 169/78 (108) 99 Nasal Cannula 3 01/25/18 16:45 90 17 165/77 (106) 99 Nasal Cannula 3 01/25/18 16:30 89 17 166/75 (105) 99 Nasal Cannula 3 01/25/18 16:15 92 17 165/74 (104) 99 Nasal Cannula 3 01/25/18 16:00 89 16 152/70 (97) 99 Nasal Cannula 3 01/25/18 15:45 87 16 156/71 (99) 97 Nasal Cannula 3 01/25/18 15:43 97.5 82 16 141/67 (91) 98 Nasal Cannula 3 01/26/18 01/26/18 01/26/18 07:00 15:00 23:00 Intake Total 393 ml Output Total 325 ml Balance 68 ml Exam: GENERAL: A&OX3,NAD SKIN: LE warm w/ motor intact Prevena wound vac to L groin in place w/o swelling or hematoma Incision to L LE with staple closure, mild sanguinous drainage noted at the distal end of the incision line No Swelling/Pain/Odor present CARDIOVASCULAR: RRR, + S1,S2 RESPIRATORY: BS CTA/No accessory muscle use. GASTROINTESTINAL: Abdomen soft, non-tender, nondistended. MUSCULOSKELETAL: No cyanosis, or edema. Pulses: Palpable L PT Multiphasic L/R DP/PT heard via Doppler LE warm Laboratory Laboratory Tests Test 01/25/18 16:13 01/25/18 22:20 01/26/18 05:53 01/26/18 07:30 White Blood Count 8.1 Red Blood Count 4.01 Hemoglobin 12.6 Hematocrit 36.7 Mean Corpuscular Volume 91.4 Mean Corpuscular Hemoglobin 31.3 Mean Corpuscular Hemoglobin Concent 34.3 Red Cell Distribution Width 14.0 Platelet Count 179 Mean Platelet Volume 7.4 Prothrombin Time 10.7 Prothromb Time International Ratio 1.1 Activated Partial Thromboplast Time 45.7 41.8 54.1 Blood Urea Nitrogen 11 Creatinine 0.72 Random Glucose 160 Calcium Level 8.3 Sodium Level 138 Potassium Level 3.8 Chloride Level 102 Carbon Dioxide Level 28.8 Anion Gap 7 Estimat Glomerular Filtration Rate 79 Nasal Screen MRSA (PCR) MRSA NOT DETECTED (Olimpia Noriega) Assessment and Plan Assessment: (1) PAD (peripheral artery disease) (2) Claudication in peripheral vascular disease Plan 77/F S/P successful L LE revascularization POD 1 pt doing well Pt w/o complaints Pain controlled Pt reported improved L LE discomfort Plan D/C muller/A line PT- OOB D/C Heparin Drip - transition to Lovenox Olimpia Noriega NP [facility] [phone] Discharge Planning likely 2-3 days (Olimpia Noriega) Plan POD#1 s/p L groin reconstruction and distal bypass palpable PT OOB TC, Muller out, a-line out, normalize with anticoagulation (Monty Montero MD) Olimpia Noriega January 26, 2018 11:38 Monty Montero MD January 26, 2018 13:32
[2018-01-26] MEDS: ENOXAPARIN SODIUM 60 MG/0.6 ML SYRINGE SQ SCH (13:21)
[2018-01-26] MEDS ORDERED: ONDANSETRON HCL 4 MG/2 ML VIAL IV PUSH ONE (13:45)
[2018-01-26] MEDS: ATORVASTATIN 40 MG TAB PO SCH (21:50)
[2018-01-26] MEDS: GABAPENTIN 100 MG CAP PO SCH (23:26)
[2018-01-27] VITALS (27 sets, daily range): BP systolic 160–189; BP diastolic 70–83; PULSE 73–105; RESP 18–20; TEMP 98.2–98.8; O2SAT 92–97
[2018-01-27] MEDS: ENOXAPARIN SODIUM 60 MG/0.6 ML SYRINGE SQ SCH (02:27)
--- NOTE | 2018-01-27 07:53 | PD.VS.PN ---
Subjective POD #: 2 Procedure(s): L PFA patch endarterectomy L fem-PT with cryo L LE angiogram Subjective/Hospital Course looks great voided this morning pain controlled thanh po Objective Vitals/I&O Date Time Temp Pulse Resp B/P (MAP) Pulse Ox O2 Delivery O2 Flow Rate FiO2 01/27/18 06:00 77 01/27/18 05:00 101 01/27/18 04:00 94 01/27/18 03:14 98.6 87 18 167/76 (106) 92 01/27/18 03:00 77 01/27/18 02:00 96 01/27/18 01:00 86 01/27/18 00:12 98.8 100 18 162/73 (102) 94 01/27/18 00:00 100 01/26/18 23:00 93 01/26/18 22:00 100 01/26/18 21:20 Nasal Cannula 2.00 01/26/18 21:00 96 01/26/18 20:30 98.8 94 18 151/78 (102) 92 01/26/18 20:00 104 01/26/18 20:00 95 Room Air 01/26/18 19:00 103 01/26/18 18:00 98.7 103 18 143/65 (91) 95 Arterial Line 01/26/18 16:00 99 01/26/18 16:00 95 Room Air 01/26/18 12:00 98.6 103 19 143/56 (85) 95 150/65 (93) 01/26/18 10:00 101 01/26/18 08:00 98.6 80 18 152/64 (93) 98 167/67 (100) 01/26/18 08:00 80 01/26/18 08:00 96 Nasal Cannula 2.00 01/27/18 01/27/18 01/27/18 07:00 15:00 23:00 Intake Total 240 ml Output Total 0 ml Balance 240 ml Exam: L groin with prevena in place, groin soft L calf with skin edge appearing bleeding, no hematoma palpable PT Laboratory Laboratory Tests Test 01/27/18 04:30 Activated Partial Thromboplast Time 26.2 Assessment and Plan Assessment: (1) PAD (peripheral artery disease) (2) Claudication in peripheral vascular disease Plan POD#2 s/p L groin reconstruction and distal bypass palpable PT will d/c therapeutic lovenox and start prophylactic lovenox; needs ASA/plavix only Discharge Planning tomorrow (POD#3) Monty Montero MD January 27, 2018 07:53
[2018-01-27] MEDS: CLOPIDOGREL 75 MG TAB PO SCH (08:16)
[2018-01-27] MEDS: ASPIRIN 81 MG CHEW TAB PO SCH (08:16)
[2018-01-27] MEDS: FAMOTIDINE 20 MG TAB PO SCH ×2 (08:16→20:49)
[2018-01-27] MEDS: DOCUSATE SODIUM 50 MG/SENNA 8.6 MG TAB PO SCH ×2 (08:16→20:48)
[2018-01-27] MEDS ORDERED: ENOXAPARIN SODIUM 30 MG/0.3 ML SYRINGE SQ SCH (14:00)
[2018-01-27] MEDS: GABAPENTIN 100 MG CAP PO SCH (20:49)
[2018-01-27] MEDS: ATORVASTATIN 40 MG TAB PO SCH (20:49)
[2018-01-28] VITALS (12 sets, daily range): BP systolic 153–178; BP diastolic 67–70; PULSE 69–90; RESP 18–20; TEMP 98–98.4; O2SAT 95–98
[2018-01-28] MEDS: FAMOTIDINE 20 MG TAB PO SCH (08:32)
[2018-01-28] MEDS: ASPIRIN 81 MG CHEW TAB PO SCH (08:32)
[2018-01-28] MEDS: CLOPIDOGREL 75 MG TAB PO SCH (08:33)
[2018-01-28] MEDS: DOCUSATE SODIUM 50 MG/SENNA 8.6 MG TAB PO SCH (08:33)
[2018-01-28] MEDS: hydrALAZINE HCL 20 MG/ML VIAL IV PUSH PRN (10:11)
--- NOTE | 2018-01-28 10:24 | PD.VS.PN ---
Subjective POD #: 3 Procedure(s): L PFA patch endarterectomy L fem-PT with cryo L LE angiogram Subjective/Hospital Course 77/F S/P L LE revascularization Pt w/o complaints of pain Pt looks great LE warm w/ motor intact Objective Vitals/I&O Date Time Temp Pulse Resp B/P (MAP) Pulse Ox O2 Delivery O2 Flow Rate FiO2 01/28/18 10:00 90 01/28/18 09:00 90 01/28/18 08:00 87 01/28/18 07:00 95 Room Air 01/28/18 07:00 89 01/28/18 07:00 98.2 89 20 165/70 (101) 95 01/28/18 06:05 88 01/28/18 05:27 80 01/28/18 04:35 79 01/28/18 03:44 98.4 80 18 153/67 (95) 96 01/28/18 03:44 Room Air 01/28/18 03:44 81 01/28/18 02:08 69 01/28/18 01:51 75 01/28/18 00:15 74 01/27/18 23:40 91 01/27/18 23:15 98.7 90 19 166/72 (103) 95 01/27/18 23:15 Room Air 01/27/18 22:00 78 01/27/18 21:00 96 01/27/18 20:00 78 01/27/18 19:30 98.4 93 20 170/75 (106) 94 01/27/18 19:30 Room Air 01/27/18 19:30 91 01/27/18 18:08 86 01/27/18 17:55 82 01/27/18 16:03 87 01/27/18 15:35 16 01/27/18 15:04 98.2 89 18 189/83 (118) 95 01/27/18 15:04 95 Room Air 01/27/18 15:04 80 01/27/18 14:25 105 01/27/18 13:05 84 01/27/18 12:01 87 01/27/18 11:05 98.6 73 18 160/71 (100) 97 01/27/18 11:05 77 01/27/18 11:05 97 Room Air 01/28/18 01/28/18 01/28/18 07:00 15:00 23:00 Intake Total 240 ml Output Total 450 ml Balance -210 ml Exam: GENERAL: A&OX3,NAD,GCS15 SKIN: LE Warm and dry motor intact Prevena wound vac to L groin w/o swelling or hematoma Incision to L LE intact with felice mind serious drainage present CARDIOVASCULAR: Regular rate and rhythm without murmurs, gallops, or rubs. RESPIRATORY: Breath sounds equal bilaterally. No accessory muscle use. GASTROINTESTINAL: Abdomen soft, non-tender, nondistended. MUSCULOSKELETAL: No cyanosis, or edema. Pulses: Palpable L PT Assessment and Plan Assessment: (1) PAD (peripheral artery disease) (2) Claudication in peripheral vascular disease Plan POD#3 s/p L groin reconstruction and distal bypass palpable PT Plan Pt clear for D/C w/ HHS and PT Arranged out pt f/u Keep Prevena wound vac in place, will remove Thursday in our out pt clinic Olimpia Noriega NP [facility] [phone] Discharge Planning today (POD#3) Olimpia Noriega January 28, 2018 10:24
[2018-01-28] MEDS ORDERED: OXYC1CAP PO (10:28)
[2018-01-28] MEDS ORDERED: ASPI81 PO (10:28)
--- NOTE | 2018-01-28 10:31 | HHI.FF ---
Face to Face Verification Diagnosis: (1) Claudication in peripheral vascular disease (2) PAD (peripheral artery disease) Physical Therapy Order: Evaluate and Treat, Improve ambulation, Strength and gait training Home Health Nursing Order: Medical education Signs/symptoms of disease process Wound care and dressing changes Instructions: Pt s/p L LE revascularization (distal bypass) Pt w/ mild serious drainage to distal end of LLE incision May cleanse with sterile NS Apply ABD pad then kerlix tape Change dressing BID or as needed if soiled I have seen patient Navdeep Sprague on 01/28/18. My clinical findings support the need for the requested home health care services because: Pt will need out pt assistance for optimal healing and wound surveillance Deconditioned w/ increased weakness Limited ability to care for self I certify that my clinical findings support that this patient is homebound because: Pt will need out pt assistance for optimal healing and wound surveillance Post-op weakness Unsteady gait/balance Olimpia Noriega January 28, 2018 10:31
--- NOTE | 2018-01-28 10:42 | PD.VS.DC ---
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 No tissue loss and no motor dysfunction. Procedure(s): L PFA patch endarterectomy L fem-PT with cryo L LE angiogram Significant Findings GENERAL: A&OX3,NAD,GCS15 SKIN: LE Warm and dry motor intact Prevena wound vac to L groin w/o swelling or hematoma Incision to L LE intact with felice mind serious drainage present CARDIOVASCULAR: Regular rate and rhythm without murmurs, gallops, or rubs. RESPIRATORY: Breath sounds equal bilaterally. No accessory muscle use. GASTROINTESTINAL: Abdomen soft, non-tender, nondistended. MUSCULOSKELETAL: No cyanosis, or edema. Pulses: Palpable L PT Laboratory Tests Test 01/25/18 16:13 01/25/18 22:20 01/26/18 05:53 01/26/18 07:30 Activated Partial Thromboplast Time 45.7 SEC (24.3-30.1) 41.8 SEC (24.3-30.1) 54.1 SEC (24.3-30.1) Random Glucose 160 MG/DL (74-106) Calcium Level 8.3 MG/DL (8.5-10.1) Estimat Glomerular Filtration Rate 79 ML/MIN (>89) Test 01/27/18 04:30 Hospital Course: 77 yo female with PAD and L LE rest pain Previous ABIs 0.4. No tissue loss and no motor dysfunction Pt S/p L groin reconstruction and distal bypass POD 1 Pt alert this am w/o complaints Pain controlled Pt reported improved L LE pain since surgical intervention LE warm w/ motor intact Pt with Palpable L LE distal pulses Mild sanguinous drainage noted at the distal end of incision line L LE (no S/R ) POD 2 looks great voided this morning pain controlled thanh po POD 3 Pt w/o complaints of pain Pt looks great LE warm w/ motor intact Distal palpable pulses Pt clear for d/c with HHS and PT Arranged out pt f/u on Thursday for vac removal Allergies Coded Allergies Type Severity Reaction Last Updated Verified ARMIDA Inhibitors Adverse Reaction Severe Cough 01/21/18 Yes 01/26/18 01/26/18 01/27/18 01/27/18 01/28/18 01/28/18 06:00 18:00 06:00 18:00 06:00 18:00 Intake Total 463 ml 292 ml 30 ml 720 ml 240 ml Output Total 580 ml 150 ml 450 ml 450 ml Balance -117 ml 142 ml 30 ml 270 ml -210 ml Intake Oral 320 ml 240 ml 30 ml 720 ml 240 ml IV Total 143 ml 52 ml Output Urine Total 580 ml 150 ml 450 ml 450 ml Stool Total 0 ml # Bowel Movements 0 0 Laboratory Tests Test 01/25/18 16:13 01/25/18 22:20 01/26/18 05:53 01/26/18 07:30 White Blood Count 8.1 TH/MM3 Red Blood Count 4.01 MIL/MM3 Hemoglobin 12.6 GM/DL Hematocrit 36.7 % Mean Corpuscular Volume 91.4 FL Mean Corpuscular Hemoglobin 31.3 PG Mean Corpuscular Hemoglobin Concent 34.3 % Red Cell Distribution Width 14.0 % Platelet Count 179 TH/MM3 Mean Platelet Volume 7.4 FL Prothrombin Time 10.7 SEC Prothromb Time International Ratio 1.1 RATIO Activated Partial Thromboplast Time 45.7 SEC 41.8 SEC 54.1 SEC Blood Urea Nitrogen 11 MG/DL Creatinine 0.72 MG/DL Random Glucose 160 MG/DL Calcium Level 8.3 MG/DL Sodium Level 138 MEQ/L Potassium Level 3.8 MEQ/L Chloride Level 102 MEQ/L Carbon Dioxide Level 28.8 MEQ/L Anion Gap 7 MEQ/L Estimat Glomerular Filtration Rate 79 ML/MIN Nasal Screen MRSA (PCR) MRSA NOT DETECTED Test 01/27/18 04:30 Activated Partial Thromboplast Time 26.2 SEC Orders Procedure Category Date Status Time Iohexol 300 Inj MED 01/25/18 Complete (Omnipaque 300 Inj) 10:45 Acetaminophen 1000 MED 01/25/18 Complete Mg/100 Ml (Ofirmev 10 11:28 Nitroglycerin Inj MED 01/25/18 Complete (Nitroglycerin Inj) 11:30 Famotidine Inj MED 01/25/18 Complete (Pepcid Inj) 11:30 Protamine Sulfate Inj MED 01/25/18 Complete (Protamine Sulfate 11:33 Heparin Inj (Heparin MED 01/25/18 Complete Inj) 11:33 Bupivacaine Pf 0.5% MED 01/25/18 Complete Inj (Marcaine Pf 0.5 11:33 Thrombin Top [place] MED 01/25/18 Complete (Thrombin Top [place]) 11:33 Heparin-Ns/Pf Inj MED 01/25/18 Complete (Heparin-Ns/Pf Inj) 11:33 Cefazolin 2 Gm Premix MED 01/25/18 Complete (Ancef 2 Gm Premix 11:33 Endovascular Cath CATH 01/25/18 Logged Urinary Catheter MARIAN 01/25/18 Complete Management 12:00 Bupivacaine Pf 0.5% MED 01/25/18 Complete Inj (Marcaine Pf 0.5 14:02 Remove Urinary MARIAN 01/26/18 In Process Catheter 08:00 Heparin-D5w 25,000 MED 01/25/18 Complete U/250 Ml (Heparin-D5w 15:30 Act Partial Throm LAB 01/25/18 Complete Time (Ptt) 15:23 Prothrombin Time / LAB 01/25/18 Complete Inr (Pt) 15:23 Cbc No Diff, Includes LAB 01/25/18 Complete Plts 15:23 Act Partial Throm LAB 01/25/18 Complete Time (Ptt) 22:23 Specimen To Be MARIAN 01/25/18 In Process Collected 15:23 Admit To Inpatient ADMITTING 01/25/18 Transmitted Code Status CODE 01/25/18 Transmitted 15:23 Vital Signs (Adult) MARIAN 01/25/18 In Process 15:23 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 / MARIAN 01/25/18 In Process Telemetry 15:23 Activity Oob Ad Kinza MARIAN 01/26/18 In Process 08:00 Activity Bed Rest MARIAN 01/25/18 In Process 15:23 Precautions MARIAN 01/25/18 In Process 15:23 ^ Vac Dressing To Be MARIAN 01/25/18 In Process Used 15:23 Diet Heart Healthy DIET 01/25/18 Transmitted Dinner Basic Metabolic Panel LAB 01/26/18 Complete (Bmp) 06:00 Consult Pt Eval & PT 01/25/18 Logged Treat 15:23 Aspirin Chew (Aspirin MED 01/26/18 In Process Chew) 09:00 Famotidine (Pepcid) MED 01/25/18 In Process 21:00 Atorvastatin (Lipitor) MED 01/25/18 In Process 21:00 Oxycodone (Roxicodone) MED 01/25/18 In Process 15:30 Hydromorphone MED 01/25/18 In Process (Dilaudid) 15:30 Morphine Inj MED 01/25/18 In Process (Morphine Inj) 15:30 Docusate Sodium-Senna MED 01/25/18 In Process (Montse-Colace) 21:00 Magnesium Hydroxide MED 01/25/18 In Process Liq (Milk Of Magnesi 15:30 Sennosides (Senokot) MED 01/25/18 In Process 15:30 Bisacodyl Supp MED 01/25/18 In Process (Dulcolax Supp) 15:30 Lactulose Liq MED 01/25/18 In Process (Lactulose Liq) 15:30 Inpatient ADMITTING 01/25/18 Transmitted Certification Clopidogrel (Plavix) MED 01/26/18 In Process 09:00 Gabapentin (Neurontin) MED 01/25/18 In Process 21:00 Hydralazine Inj MED 01/25/18 In Process (Apresoline Inj) 15:30 Am Admit Pre Op Care [facility] 01/25/18 Complete Fentanyl Inj MED 01/25/18 Complete (Fentanyl Inj) 15:51 Midazolam Inj (Versed MED 01/25/18 Complete Inj) 15:51 Nursing Information MED 01/25/18 Complete ([facility] Nursing Inform 15:45 *Morphine Inj MED 01/25/18 Complete (*Morphine Inj 17:07 *Morphine Inj MED 01/25/18 Complete (*Morphine Inj 18:06 Act Partial Throm LAB 01/26/18 Complete Time (Ptt) 06:00 ^ Other Nursing Orders MARIAN 01/26/18 In Process 06:46 ^ Pulse Checks MARIAN 01/26/18 In Process 06:46 Act Partial Throm LAB 01/27/18 Complete Time (Ptt) 07:25 Mrsa Pcr Surveillance LAB 01/26/18 Complete 07:35 [facility] Complete MIN [facility]/25[facility]18 Complete Post [facility]est[facility]18 Complete Pacu Isc Holding [facility] 01/25/18 Complete Hourly Pacu Isc Holding [facility] 01/26/18 Complete Hourly Family Notification MARIAN 01/26/18 In Process 07:48 (Hub Use Only)Inp Phy CONS 01/26/18 Transmitted Cons/Ref Remove Urinary MARIAN 01/26/18 In Process Catheter 11:21 ^ Discontinue MARIAN 01/26/18 In Process Arterial Line 11:21 Consult Pt Eval & Tx PT 01/26/18 Complete OOB 11:21 Enoxaparin Inj MED 01/26/18 Complete (Lovenox Inj) 12:00 Activity Oob With MARIAN 01/26/18 In Process Assistance 13:29 Ondansetron Inj MED 01/26/18 Complete (Zofran Inj) 13:45 Patient Transfer ADMITTING 01/26/18 Transmitted Enoxaparin Inj MED 01/27/18 In Process (Lovenox Inj) 14:00 Sodium Chlorid 0.9% MED 01/25/18 Complete 500 Ml Inj (Ns 500 M 12:00 Normosol R Inj MED 01/25/18 Complete (Normosol R Inj) 12:00 Lidocaine Pf 1% Inj MED 01/25/18 Complete (Xylocaine-Mpf 1% In 12:00 Rocuronium Inj MED 01/25/18 Complete (Zemuron Inj) 12:00 Ephedrine/Ns 25 Mg/5 MED 01/25/18 Complete Ml Syr (Ephedrine/N 12:00 Metoprolol Tartrate MED 01/25/18 Complete Inj (Lopressor Inj) 12:00 Hydralazine Inj MED 01/25/18 Complete (Apresoline Inj) 12:00 Esmolol Bolus Inj MED 01/25/18 Complete (Brevibloc Bolus Inj) 12:00 Dexamethasone Inj MED 01/25/18 Complete (Decadron Inj) 12:00 Ondansetron Inj MED 01/25/18 Complete (Zofran Inj) 12:00 Propofol 200 Mg/20 Ml MED 01/25/18 Complete Inj (Diprivan 200 12:00 Attending Discharge DISCHARGE 01/28/18 Transmitted Order Vital Signs Date Time Temp Pulse Resp B/P (MAP) Pulse Ox O2 Delivery O2 Flow Rate FiO2 01/28/18 10:00 90 01/28/18 09:00 90 01/28/18 08:00 87 01/28/18 07:00 95 Room Air 01/28/18 07:00 89 01/28/18 07:00 98.2 89 20 165/70 (101) 95 01/28/18 06:05 88 18 05:27 80 18 04:35 79 01/28/18 03:44 98.4 80 18 153/67 (95) 96 01/28/18 03:44 Room Air 01/28/18 03:44 81 01/28/18 02:08 69 01/28/18 01:51 75 01/28/18 00:15 74 01/27/18 23:40 91 01/27/18 23:15 98.7 90 19 166/72 (103) 95 01/27/18 23:15 Room Air 01/27/18 22:00 78 01/27/18 21:00 96 01/27/18 20:00 78 01/27/18 19:30 98.4 93 20 170/75 (106) 94 01/27/18 19:30 Room Air 01/27/18 19:30 91 01/27/18 18:08 86 01/27/18 17:55 82 01/27/18 16:03 87 01/27/18 15:35 16 01/27/18 15:04 98.2 89 18 189/83 (118) 95 01/27/18 15:04 95 Room Air 01/27/18 15:04 80 01/27/18 14:25 105 01/27/18 13:05 84 01/27/18 12:01 87 01/27/18 11:05 98.6 73 18 160/71 (100) 97 01/27/18 11:05 77 01/27/18 11:05 97 Room Air 01/27/18 10:05 83 01/27/18 09:18 90 01/27/18 08:04 90 01/27/18 07:57 98.7 94 18 170/70 (103) 94 01/27/18 07:57 94 Room Air 01/27/18 07:57 93 01/27/18 06:00 77 01/27/18 05:00 101 01/27/18 04:00 94 01/27/18 03:14 98.6 87 18 167/76 (106) 92 01/27/18 03:00 77 01/27/18 02:00 96 01/27/18 01:00 86 01/27/18 00:12 98.8 100 18 162/73 (102) 94 01/27/18 00:00 100 01/26/18 23:00 93 01/26/18 22:00 100 01/26/18 21:20 Nasal Cannula 2.00 01/26/18 21:00 96 01/26/18 20:30 98.8 94 18 151/78 (102) 92 01/26/18 20:00 104 01/26/18 20:00 95 Room Air 01/26/18 19:00 103 01/26/18 18:00 98.7 103 18 143/65 (91) 95 Arterial Line 01/26/18 16:00 99 01/26/18 16:00 95 Room Air 01/26/18 12:00 98.6 103 19 143/56 (85) 95 150/65 (93) 01/26/18 10:00 101 01/26/18 08:00 98.6 80 18 152/64 (93) 98 167/67 (100) 01/26/18 08:00 80 01/26/18 08:00 96 Nasal Cannula 2.00 01/26/18 06:00 78 16 154/72 (99) 97 Nasal Cannula 2 154/58 (90) 01/26/18 05:00 76 17 146/66 (92) 97 Nasal Cannula 2 136/57 (83) 01/26/18 04:00 98.5 100 15 141/65 (90) 97 Nasal Cannula 2 125/53 (77) 01/26/18 03:00 82 15 130/60 (83) 96 Nasal Cannula 2 120/56 (77) 01/26/18 02:00 83 14 141/65 (90) 96 Nasal Cannula 2 131/56 (81) 01/26/18 01:00 83 14 127/60 (82) 96 Nasal Cannula 2 114/54 (74) 01/26/18 00:00 98.3 97 15 137/64 (88) 96 Nasal Cannula 2 140/61 (87) 01/25/18 23:00 91 13 140/64 (89) 97 Nasal Cannula 2 137/60 (85) 01/25/18 22:00 98.5 90 12 149/67 (94) 96 Nasal Cannula 2 135/66 (89) 01/25/18 21:00 90 12 153/71 (98) 97 Nasal Cannula 2 137/57 (83) 01/25/18 20:00 86 12 142/67 (92) 98 Nasal Cannula 2 140/60 (86) 01/25/18 19:11 87 17 144/65 (91) 98 Room Air 01/25/18 18:15 82 17 163/72 (102) 98 Room Air 01/25/18 17:45 86 17 153/68 (96) 98 Nasal Cannula 2 01/25/18 17:30 83 17 160/69 (99) 98 Nasal Cannula 3 01/25/18 17:15 90 17 171/67 (101) 99 Nasal Cannula 3 01/25/18 17:00 90 17 169/78 (108) 99 Nasal Cannula 3 01/25/18 16:45 90 17 165/77 (106) 99 Nasal Cannula 3 01/25/18 16:30 89 17 166/75 (105) 99 Nasal Cannula 3 01/25/18 16:15 92 17 165/74 (104) 99 Nasal Cannula 3 01/25/18 16:00 89 16 152/70 (97) 99 Nasal Cannula 3 01/25/18 15:45 87 16 156/71 (99) 97 Nasal Cannula 3 01/25/18 15:43 97.5 82 16 141/67 (91) 98 Nasal Cannula 3 Discharge Condition: Good Discharge Disposition: Disch w/ Home Health Serv Discharge Instructions: DIET You may resume your regular heart healthy diet ACTIVITY Activity as tolerated NO tub baths or swimming until incision is fully healed Sponge baths are recommended until your prevena wound vac is removed You may shower on Thursday after your wound vac is removed WOUND CARE Apply an ABD pad then Kerlix then tape to distal end of your L LE incision while drainage is present Change twice daily or as needed if soiled Call to report any increase in pain, swelling or drainage Leave your prevena wound vac in place until your office appointment on THURSDAY- Will remove in the office MEDICATIONS You may resume your daily home medications You were prescribed a narcotic pain medication which may cause constipation- Take with an over the counter stool softener You were prescribed a narcotic pain medication which may cause drowsiness- Do not drive while taking this medication Any questions or concerns: Call [facility] at [facility] [phone] Olimpia Noriega January 28, 2018 10:42
[2018-01-28] MEDS ORDERED: GETGO ROLLING W1 MI1 (10:44)
[2018-01-28] MEDS ORDERED: COMMODE 3-IN-11 MIS (10:45)
== END 2018-01-28 12:30 | disposition home health service (06) | DRG 254 ==
LOC: HSDI 08:20 → HPAC 22:31 → N03B 01-26 06:33 → HCPC 01-26 17:50
PROVIDERS: ADMIT Surgery; ATTEND Surgery
PROC: 04UL0JZ Supplement Left Femoral Artery with Synthetic Substitute, Open Approach (ICD-10-PCS; 2018-01-25)
PROC: B41G1ZZ Fluoroscopy of Left Lower Extremity Arteries using Low Osmolar Contrast (ICD-10-PCS; 2018-01-25)
PROC: 04CL0ZZ Extirpation of Matter from Left Femoral Artery, Open Approach (ICD-10-PCS; principal; 2018-01-25 11:47)
PROC: 041L0JN Bypass Left Femoral Artery to Posterior Tibial Artery with Synthetic Substitute, Open Approach (ICD-10-PCS; 2018-01-25 11:47)
DX: I70.222 Atherosclerosis of native arteries of extremities with rest pain, left leg (principal); E11.51 Type 2 diabetes mellitus with diabetic peripheral angiopathy without gangrene; I10 Essential (primary) hypertension; I25.10 Atherosclerotic heart disease of native coronary artery without angina pectoris; Z86.79 Personal history of other diseases of the circulatory system; Z87.891 Personal history of nicotine dependence; K21.9 Gastro-esophageal reflux disease without esophagitis
CPT/HCPCS: 75710; 80048; 85027; 85610; 85730; 86850; 86900; 86901; 87641; J0131; J0360; J0690; J1100; J1644; J1650; J2250; J2270; J2405; J2720; J3010; J7040; J7120; Q9967